=== PATIENT | male | born 1950 | race Caucasian/White ===

== ENCOUNTER 2016-07-18 14:01 | Emergency (ER) | payer MEDICARE ==
[~2016-07-18 14:01] MED LIST: ACETAMINOPHEN325 MG PO; AMITRIPTYLINE H75 MG PO; ASPIR 8181 MG PO; COREG12.5 MG PO; CULTURELLE1 EACH PO; DAILY VITE1 EACH PO; FLOMAX0.4 MG PO; GLUCOTROL5 MG PO; NORVASC5 MG PO; PRAVACHOL40 MG PO; PROSCAR5 MG PO
== END 2016-07-18 17:40 | disposition short-term general hospital (02) ==
LOC: ER 14:01
DX: T18.128A Food in esophagus causing other injury, initial encounter (principal); J18.9 Pneumonia, unspecified organism; E11.9 Type 2 diabetes mellitus without complications; I10 Essential (primary) hypertension; Z95.0 Presence of cardiac pacemaker; Z79.01 Long term (current) use of anticoagulants; Z79.899 Other long term (current) drug therapy
CPT/HCPCS: 36415; 96372; J1610